=== PATIENT | female | born 1985 | race Caucasian/White ===

== ENCOUNTER 2017-03-15 19:48 | Emergency (ER) | payer OTHER ==
[~2017-03-15] VITALS: Ht 154.9 cm; Wt 87.4 kg
[~2017-03-15 19:48] MED LIST: ACET-1256 PO; TRAM-10 PO
[2017-03-15 19:50] VITALS: TEMP 36.9; Ht 154.9 cm; Wt 87.4 kg
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
[2017-03-15 20:48] VITALS: BP 108/66; PULSE 64; O2SAT 100
--- NOTE | 2017-03-15 20:49 | EMERGENCY ROOM VISIT NOTE ---
ED Visit Note First contact with patient: 20:00 CHIEF COMPLAINT: Right Hand pain and swelling HISTORY OF PRESENT ILLNESS: This 31-year-old white female punched a wall a week ago in an episode of anger. She had sudden onset of pain and swelling that developed in the dorsal hand rapidly. She is able to move the fingers although the 3rd finger is painful in flexion. Right hand dominant. They deny any numbness or tingling. No prior history of significant hand injury. No treatment yet. Pain is 5/10. She denies any involvement of the other fingers. No other complaints. Occasionally the pain radiates into her forearm. REVIEW OF SYSTEM: HEENT: No dizziness, visual problems, hearing loss, or tinnitus. There is no difficulty swallowing and no oral lesions are present. PULMONARY: No cough, shortness of breath, sputum production or hemoptysis. CARDIOVASCULAR: No chest pain, palpitations, shortness of breath or peripheral edema. GASTROINTESTINAL: No diarrhea, constipation, nausea, vomiting, or abdominal pain. GENITOURINARY: No dysuria, frequency, urgency or nocturia. NEUROLOGIC: No weakness, muscle tenderness, epilepsy or history of neurological problems. MUSCULOSKELETAL: No history of joint tenderness/swelling. No history of arthritis or arthralgias. SKIN: No rashes or lesions. ENDOCRINE: No history of diabetes, thyroid disorders, or abnormal hair growth. PMH: Significant for IBS and previous cholecystitis previous surgeries: Cholecystectomy, 3 FAMILY HISTORY: Significant for diabetes, heart disease, hypertension, and cancer. Parents are living. SOCIAL HISTORY: Unemployed. Lives with her mother. Positive tobacco use, no EtOH use. Current Medications: None Allergies: NKDA PHYSICAL EXAM: Vital Signs: Afebrile. Reviewed and filed in patient's chart. General: Well-developed, well-nourished, young white female, in no obvious discomfort. No acute distress. She is sitting on the bed. Alert and oriented. Skin: Warm and dry with good turgor. No rashes or lesions. No ecchymosis or erythema on the dorsum of the hand. Very mild edema present over the third metacarpal head. The patient is not diaphoretic. No abrasions. Musculoskeletal: There is pain with palpation over the head of the 3rd metacarpal. No pain with palpation over the first through fifth metacarpal bases or shafts. No pain with palpation of the thumb, index, ring, or little fingers. No pain with palpation of the palm. Full range of motion of the wrist. She is able to make a full fist. Extension of the 3rd finger is full but is painful. Strength is 5/5 for resisted flexion and extension of the long finger. FDS and FDP functions are clearly intact by isolation. Neurologic: Gross sensation is intact across each of the fingers and the hand. Capillary refill is equal among all fingers. DATA: X-ray of the hand shows no fracture through the third metacarpal. No dislocation. This was interpreted by me and was read by radiology. IMPRESSION: Right hand contusion DISCHARGE INSTRUCTIONS and PLAN: Patient was educated regarding today's findings. Conservative care measures were discussed. Gentle motion daily. Ice and elevation of the hand frequently over the next 2 days. Tylenol and Motrin every 6 hours as needed for pain. Avoid further trauma to the hand if possible. She was reassured that I do not suspect fracture, dislocation, or tendon injury. Return to the ER for any acute changes or other concerns. Problem List Medical Problems: (1) Asthma Status: Chronic (2) Depression Status: Chronic (3) Hyperlipemia Status: Chronic Current/Historical Medications No Active Prescriptions or Reported Meds Allergies Coded Allergies: No Known Allergies (Verified , 05/27/16) Vital Signs Date Time Temp Pulse Resp B/P Pulse Ox O2 Delivery O2 Flow Rate FiO2 03/15/17 19:50 36.9 75 18 135/78 97 Room Air Departure Information Prescriptions No Active Prescriptions or Reported Meds Referrals No Doctor, Assigned (PCP) Patient Instructions My [facility]
== END 2017-03-15 20:48 | disposition home or self-care (01) ==
LOC: C.EDB 19:49 → C.EDD 20:48
DX: S60.221A Contusion of right hand, initial encounter (principal); W22.8XXA Striking against or struck by other objects, initial encounter; K58.9 Irritable bowel syndrome, unspecified; Z90.49 Acquired absence of other specified parts of digestive tract; Z83.3 Family history of diabetes mellitus; Z82.49 Family history of ischemic heart disease and other diseases of the circulatory system; Z80.9 Family history of malignant neoplasm, unspecified; F17.200 Nicotine dependence, unspecified, uncomplicated; J45.909 Unspecified asthma, uncomplicated; E78.5 Hyperlipidemia, unspecified; F32.9 Major depressive disorder, single episode, unspecified

== ENCOUNTER 2018-01-22 15:49 | Emergency (ER) | payer OTHER ==
[~2018-01-22] VITALS: Ht 154.9 cm; Wt 92.0 kg
[2018-01-22 15:53] VITALS: TEMP 36.7; Ht 154.9 cm; Wt 92.0 kg
[2018-01-22] MEDS ORDERED: KETOROLAC TROMETHAMINE 60 MG/2 ML VIAL IM STA (16:15)
--- NOTE | 2018-01-22 17:08 | DIAGNOSTIC IMAGING REPORT ---
THORACIC SPINE 3 VIEWS ROUTINE HISTORY: 32 years-old Female NECK AND MID BACK PAIN AFTER A FALL acute upper back pain status post fall COMPARISON: CT abdomen and pelvis 05/27/2016 TECHNIQUE: 3 views of the thoracic spine FINDINGS: There are 12 rib-bearing thoracic-type vertebral segments present. No acute fracture, subluxation or significant degenerative changes. Minimal multilevel anterior endplate spurring. Bone mineralization appears within normal limits. The upper thoracic segments are not well-seen secondary to patient's shoulders. Imaged soft tissues and lung nieto appear unremarkable. Cholecystectomy clips are noted. IMPRESSION: No acute fracture or subluxation. The above report was generated using voice recognition software. It may contain grammatical, syntax or spelling errors. Electronically signed by: Nahid Jensen M.D. 01/22/2018 5:07 PM Dictated Date/Time: 01/22/2018 5:05 PM
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
[2018-01-22] MEDS ORDERED: CYCL10TA6 PO (17:35)
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
[2018-01-22 17:42] VITALS: BP 145/70; PULSE 76; O2SAT 97
== END 2018-01-22 17:42 | disposition home or self-care (01) ==
LOC: C.EDB 15:52 → C.EDD 17:42
DX: M54.9 Dorsalgia, unspecified (principal); W00.0XXA Fall on same level due to ice and snow, initial encounter; F17.210 Nicotine dependence, cigarettes, uncomplicated; J45.909 Unspecified asthma, uncomplicated; F32.9 Major depressive disorder, single episode, unspecified; E78.5 Hyperlipidemia, unspecified; Z90.49 Acquired absence of other specified parts of digestive tract